=== PATIENT | female | born 1965 | race Caucasian/White ===

== ENCOUNTER → 2018-07-31 | Outpatient (CLI) | payer OTHER | END | disposition home or self-care (01) | LOC: CFH 10:52 | PROVIDERS: ATTEND Obstetrics & Gynecology | DX: Z12.31 Encounter for screening mammogram for malignant neoplasm of breast (principal); Z13.820 Encounter for screening for osteoporosis; M85.88 Other specified disorders of bone density and structure, other site; Z80.3 Family history of malignant neoplasm of breast | CPT/HCPCS: 77080; 77067 ==

== ENCOUNTER 2018-11-01 13:17 | Inpatient (IN) | payer OTHER ==
[~2018-11-01] VITALS: Ht 162.6 cm; Wt 61.5 kg
[2018-11-01] MEDS ORDERED: ONDANSETRON 2MG/ML, 2ML IVPush ONE (14:00)
[2018-11-01] MEDS ORDERED: SODIUM CHLORIDE 0.9% 1,000ML IVBOLUS ONE (14:00)
[2018-11-01] MEDS ORDERED: ONDANSETRON 2MG/ML, 2ML ONE ×2 (14:25→19:19)
[2018-11-01 14:32] LABS: MEAN CORPUSCULAR HEMOGLOBIN 32.6 pg (27.0-34.8); MEAN CORPUSCULAR VOLUME 96.1 fL (80-100); MEAN PLATELET VOLUME 7.4 fL (7.4-10.4); PLATELET COUNT 481 x10^3/uL (130-400); RED BLOOD COUNT 4.93 x10^6/uL (3.82-5.3); RED CELL DISTRIBUTION WIDTH 12.8 % (9.6-15.2)
[2018-11-01 14:44] LABS: ALANINE AMINOTRANSFERASE 18 U/L (12-78); ALBUMIN 4.1 g/dL (3.4-5.0); ANION GAP 12 mmol/L (5-15); CALCIUM 10.1 mg/dL (8.5-10.1); CHLORIDE 97 mmol/L (98-107); CREATININE 0.74 mg/dL (0.55-1.02)
[2018-11-01 14:46] LABS: ALKALINE PHOSPHATASE 93 U/L (45-117)
[2018-11-01 15:03] LABS: BASOPHILS # (AUTO) 0.03 x10^3/uL (0-0.1); BASOPHILS % (AUTO) 0 % (0-1); EOSINOPHILS % (AUTO) 0 % (1-7); LYMPHOCYTES % (AUTO) 6 % (22-44); MD SCAN; MONOCYTES # (AUTO) 0.72 x10^3/uL (0.2-0.8); MONOCYTES % (AUTO) 4 % (2-9); NEUTROPHILS # (AUTO) 16.69 x10^3/uL (1.8-6.8); NEUTROPHILS % (AUTO) 90 % (42-75)
[2018-11-01] MEDS ORDERED: OMNIPAQUE 350 MG/ML, 100ML BOTTLE ONE (15:12)
[2018-11-01] MEDS ORDERED: SODIUM CHLORIDE 0.9% 1,000 ML IV SCH (16:00)
[2018-11-01] MEDS ORDERED: ONDANSETRON 2MG/ML, 2ML IVPush PRN (17:00)
[2018-11-01] MEDS ORDERED: ENALAPRILAT 1.25 MG/ML, 2ML IVPush PRN (17:00)
[2018-11-01] MEDS ORDERED: ONDANSETRON ODT 4 MG PO PRN (17:00)
[2018-11-01] MEDS ORDERED: POTASSIUM CHLORIDE 40 MEQ in SODIUM CHLORIDE 0.9% 500 ML IV ONE (17:00)
[2018-11-01] MEDS ORDERED: hydrALAzine 20 MG/ML, 1ML IVPush PRN (17:00)
[2018-11-01 17:02] VITALS: BP 135/88
[2018-11-01] MEDS: MORPHINE SULFATE 4 MG/ML, 1ML IVPush PRN (17:24)
[2018-11-01] MEDS: SODIUM CHLORIDE 0.9% 1,000 ML IV SCH (17:25)
[2018-11-01] MEDS ORDERED: MIDAZOLAM 1 MG/ML, 2ML ONE (18:47)
[2018-11-01] MEDS ORDERED: FENTANYL PF 250 MCG/5ML ONE (18:47)
[2018-11-01] MEDS ORDERED: GLYCOPYRROLATE 0.2MG/1ML, 5ML ONE (18:49)
[2018-11-01] MEDS ORDERED: METOPROLOL 1 MG/ML, 5ML ONE (18:49)
[2018-11-01] MEDS ORDERED: NEOSTIGMINE 1 MG/ML, 10ML ONE (18:49)
[2018-11-01] MEDS ORDERED: KETOROLAC 30 MG/1 ML ONE (19:19)
[2018-11-01] MEDS ORDERED: DEXAMETHASONE 4 MG/ML, 1ML ONE (19:19)
[2018-11-01] MEDS ORDERED: SUCCINYLCHOLINE 20 MG/ML, 10ML ONE (19:19)
[2018-11-01] MEDS ORDERED: PROPOFOL 10 MG/ML, 20ML ONE (19:19)
[2018-11-01] MEDS ORDERED: ROCURONIUM 10MG/ML,5ML ONE (19:19)
[2018-11-01] MEDS ORDERED: PHENYLEPHRINE 10 MG/ML ONE (19:19)
[2018-11-01] MEDS ORDERED: LIDOCAINE-MPF 2% ,5ML ONE (19:19)
[2018-11-01] MEDS ORDERED: OXYcodone 5 MG/5 ML ORAL.SOL UDC PO PRN (20:00)
[2018-11-01] MEDS ORDERED: MEPERIDINE/PF 25MG/0.5ML IVPush PRN (20:00)
[2018-11-01] MEDS ORDERED: PROMETHAZINE 25 MG/ML, 1ML IV PRN (20:00)
[2018-11-01] MEDS ORDERED: METOPROLOL 1 MG/ML, 5ML IV PRN (20:00)
[2018-11-01] MEDS ORDERED: hydrALAzine 20 MG/ML, 1ML IV PRN ×2 (20:00→22:30)
[2018-11-01] MEDS ORDERED: LORazepam 2 MG/ML, 1ML IVPush PRN (20:00)
[2018-11-01] MEDS ORDERED: HALOPERIDOL 5 MG/ML IV PRN (20:00)
[2018-11-01] MEDS ORDERED: FENTANYL PF 100 MCG/2ML IV PRN (20:00)
[2018-11-01] MEDS ORDERED: ACETAMINOPHEN 325 MG TABLET PO PRN ×2 (20:00→22:30)
[2018-11-01] MEDS ORDERED: HYDROmorphone 2 MG/ML, 1ML ONE (21:04)
[2018-11-01] MEDS: HYDROmorphone 2 MG/ML, 1ML IVPush PRN ×4 (21:08→21:42)
[2018-11-01 22:00] VITALS: BP 105/61
[2018-11-01] MEDS ORDERED: SODIUM CHLORIDE 0.9%, 500ML IV PRN (22:30)
[2018-11-01] MEDS ORDERED: DIPHENHYDRAMINE 50 MG/ML, 1ML IV PRN (22:30)
[2018-11-01] MEDS ORDERED: ONDANSETRON 2MG/ML, 2ML IV PRN (22:30)
[2018-11-01] MEDS ORDERED: DIPHENHYDRAMINE 25 MG CAPSULE PO PRN (22:30)
[2018-11-01] MEDS ORDERED: ACETAMINOPHEN 650 MG SUPP PR PRN (22:30)
[2018-11-01] MEDS ORDERED: HYDROcodone/APAP 5/325 TABLET PO PRN (22:30)
[2018-11-01] MEDS ORDERED: CEFOTETAN PMX 1GM/50ML 50 ML IVPB SCH (22:30)
[2018-11-01] MEDS: ENOXAPARIN 40 MG/0.4 ML SQ SCH (23:24)
[2018-11-02 00:20] VITALS: BP 107/68
[2018-11-02] MEDS ORDERED: ATOR10TA9 PO (00:47)
[2018-11-02] MEDS: SODIUM CHLORIDE 0.9% 1,000 ML IV SCH (02:00)
[2018-11-02] MEDS: KETOROLAC 30 MG/1 ML IV PRN ×2 (02:35→09:36)
[2018-11-02] MEDS: LACTATED RINGERS 1,000 ML IV SCH ×3 (04:14→20:45)
[2018-11-02 04:56] LABS: BASOPHILS % (AUTO) 0 % (0-1); EOSINOPHILS # (AUTO) 0.01 x10^3/uL (0-0.4); EOSINOPHILS % (AUTO) 0 % (1-7); LYMPHOCYTES # (AUTO) 0.53 x10^3/uL (1-3.4); LYMPHOCYTES % (AUTO) 5 % (22-44); MD NO; MEAN CORPUSCULAR HEMOGLOBIN 33.3 pg (27.0-34.8); MEAN CORPUSCULAR HGB CONC 34.2 g/dL (32.4-35.8); MEAN CORPUSCULAR VOLUME 97.5 fL (80-100); MEAN PLATELET VOLUME 7.5 fL (7.4-10.4); MONOCYTES # (AUTO) 0.48 x10^3/uL (0.2-0.8); MONOCYTES % (AUTO) 4 % (2-9); NEUTROPHILS # (AUTO) 9.96 x10^3/uL (1.8-6.8); NEUTROPHILS % (AUTO) 91 % (42-75); PLATELET COUNT 369 x10^3/uL (130-400); RED CELL DISTRIBUTION WIDTH 12.7 % (9.6-15.2)
[2018-11-02 05:01] LABS: ALANINE AMINOTRANSFERASE 65 U/L (12-78); ALBUMIN 2.6 g/dL (3.4-5.0); ANION GAP 8 mmol/L (5-15); CALCIUM 8.2 mg/dL (8.5-10.1); CHLORIDE 110 mmol/L (98-107)
[2018-11-02 05:03] LABS: ALKALINE PHOSPHATASE 59 U/L (45-117); BILIRUBIN,TOTAL 0.8 mg/dL (0.2-1.0); CREATININE 0.65 mg/dL (0.55-1.02)
[2018-11-02 05:18] LABS: MICROSCOPIC INDICATED
[2018-11-02 05:27] LABS: CULTURE INDICATED? NO
[2018-11-02] MEDS: morphine SULFATE 10 MG/ML, 1ML IV PRN ×2 (05:42→14:01)
[2018-11-02] MEDS: CEFOTETAN PMX 1GM/50ML 50 ML IVPB SCH ×2 (06:34→18:30)
[2018-11-02 06:48] VITALS: BP 115/72
[2018-11-02 13:55] VITALS: BP 122/69
[2018-11-02] MEDS: MORPHINE SULFATE 4 MG/ML, 1ML IVPush PRN (18:29)
[2018-11-02 19:19] VITALS: BP 123/79
[2018-11-03] MEDS: KETOROLAC 30 MG/1 ML IV PRN ×4 (00:03→22:08)
[2018-11-03] MEDS: ENOXAPARIN 40 MG/0.4 ML SQ SCH (00:04)
[2018-11-03 00:45] VITALS: BP 119/77
[2018-11-03] MEDS: LACTATED RINGERS 1,000 ML IV SCH ×3 (04:04→22:09)
[2018-11-03 04:46] LABS: MEAN CORPUSCULAR HEMOGLOBIN 33.1 pg (27.0-34.8); MEAN CORPUSCULAR HGB CONC 33.7 g/dL (32.4-35.8); MEAN PLATELET VOLUME 7.8 fL (7.4-10.4); PLATELET COUNT 351 x10^3/uL (130-400); RED BLOOD COUNT 3.29 x10^6/uL (3.82-5.3); RED CELL DISTRIBUTION WIDTH 12.9 % (9.6-15.2)
[2018-11-03 05:18] LABS: BASOPHILS # (AUTO) 0.02 x10^3/uL (0-0.1); BASOPHILS % (AUTO) 0 % (0-1); EOSINOPHILS # (AUTO) 0.01 x10^3/uL (0-0.4); EOSINOPHILS % (AUTO) 0 % (1-7); LYMPHOCYTES # (AUTO) 1.12 x10^3/uL (1-3.4); LYMPHOCYTES % (AUTO) 11 % (22-44); MD SCAN; MONOCYTES # (AUTO) 0.43 x10^3/uL (0.2-0.8); MONOCYTES % (AUTO) 4 % (2-9); NEUTROPHILS % (AUTO) 84 % (42-75)
[2018-11-03 06:41] VITALS: BP 116/72
[2018-11-03 12:18] VITALS: BP 123/75
[2018-11-03 19:20] VITALS: BP 123/78
[2018-11-04 00:07] VITALS: BP 119/79
[2018-11-04] MEDS: ENOXAPARIN 40 MG/0.4 ML SQ SCH (00:13)
[2018-11-04 05:38] LABS: BASOPHILS # (AUTO) 0.02 x10^3/uL (0-0.1); BASOPHILS % (AUTO) 0 % (0-1); EOSINOPHILS # (AUTO) 0.01 x10^3/uL (0-0.4); EOSINOPHILS % (AUTO) 0 % (1-7); LYMPHOCYTES % (AUTO) 5 % (22-44); MD NO; MEAN CORPUSCULAR HEMOGLOBIN 33.6 pg (27.0-34.8); MEAN CORPUSCULAR HGB CONC 34.7 g/dL (32.4-35.8); MEAN PLATELET VOLUME 7.6 fL (7.4-10.4); MONOCYTES # (AUTO) 0.33 x10^3/uL (0.2-0.8); MONOCYTES % (AUTO) 3 % (2-9); NEUTROPHILS % (AUTO) 92 % (42-75); PLATELET COUNT 370 x10^3/uL (130-400); RED CELL DISTRIBUTION WIDTH 13.2 % (9.6-15.2)
[2018-11-04] MEDS: KETOROLAC 30 MG/1 ML IV PRN ×3 (06:57→20:08)
[2018-11-04] MEDS: LACTATED RINGERS 1,000 ML IV SCH ×2 (06:58→20:08)
[2018-11-04 07:05] VITALS: BP 130/75
[2018-11-04 07:14] LABS: ANION GAP 13 mmol/L (5-15); CALCIUM 8.1 mg/dL (8.5-10.1); CHLORIDE 109 mmol/L (98-107); CREATININE 0.25 mg/dL (0.55-1.02)
[2018-11-04 12:30] VITALS: BP 129/81
[2018-11-04] MEDS ORDERED: POTASSIUM CHLORIDE 80 MEQ in SODIUM CHLORIDE 0.9% 1,000 ML IV ONE (15:30)
[2018-11-04 19:27] VITALS: BP 143/79
[2018-11-05] MEDS: ENOXAPARIN 40 MG/0.4 ML SQ SCH (00:04)
[2018-11-05 02:04] VITALS: BP 125/78
[2018-11-05] MEDS: LACTATED RINGERS 1,000 ML IV SCH ×3 (03:10→22:40)
[2018-11-05 04:56] LABS: BASOPHILS % (AUTO) 0 % (0-1); EOSINOPHILS # (AUTO) 0.36 x10^3/uL (0-0.4); EOSINOPHILS % (AUTO) 3 % (1-7); LYMPHOCYTES # (AUTO) 0.72 x10^3/uL (1-3.4); LYMPHOCYTES % (AUTO) 6 % (22-44); MD NO; MEAN CORPUSCULAR HEMOGLOBIN 33.1 pg (27.0-34.8); MEAN CORPUSCULAR HGB CONC 34.3 g/dL (32.4-35.8); MEAN CORPUSCULAR VOLUME 96.5 fL (80-100); MEAN PLATELET VOLUME 7.3 fL (7.4-10.4); MONOCYTES # (AUTO) 0.61 x10^3/uL (0.2-0.8); MONOCYTES % (AUTO) 5 % (2-9); NEUTROPHILS # (AUTO) 11.53 x10^3/uL (1.8-6.8); NEUTROPHILS % (AUTO) 87 % (42-75); PLATELET COUNT 473 x10^3/uL (130-400); RED BLOOD COUNT 3.18 x10^6/uL (3.82-5.3); RED CELL DISTRIBUTION WIDTH 12.9 % (9.6-15.2)
[2018-11-05 05:14] LABS: ANION GAP 11 mmol/L (5-15); CALCIUM 8.2 mg/dL (8.5-10.1); CHLORIDE 114 mmol/L (98-107)
[2018-11-05 05:17] LABS: CREATININE 0.23 mg/dL (0.55-1.02)
[2018-11-05 07:14] VITALS: BP 138/83
[2018-11-05 12:28] VITALS: BP 138/83
[2018-11-05] MEDS: POTASSIUM CHLORIDE 40 MEQ in SODIUM CHLORIDE 0.9% 500 ML IV SCH ×2 (15:06→22:10)
[2018-11-05 19:44] VITALS: BP 129/83
[2018-11-06] MEDS: ENOXAPARIN 40 MG/0.4 ML SQ SCH (00:38)
[2018-11-06 00:52] VITALS: BP 132/85
[2018-11-06 04:29] LABS: BASOPHILS # (AUTO) 0.01 x10^3/uL (0-0.1); BASOPHILS % (AUTO) 0 % (0-1); EOSINOPHILS % (AUTO) 1 % (1-7); LYMPHOCYTES # (AUTO) 0.83 x10^3/uL (1-3.4); LYMPHOCYTES % (AUTO) 6 % (22-44); MD NO; MEAN CORPUSCULAR HEMOGLOBIN 32.6 pg (27.0-34.8); MEAN CORPUSCULAR HGB CONC 33.8 g/dL (32.4-35.8); MEAN CORPUSCULAR VOLUME 96.2 fL (80-100); MEAN PLATELET VOLUME 6.8 fL (7.4-10.4); MONOCYTES # (AUTO) 0.73 x10^3/uL (0.2-0.8); MONOCYTES % (AUTO) 6 % (2-9); NEUTROPHILS % (AUTO) 87 % (42-75); PLATELET COUNT 571 x10^3/uL (130-400); RED BLOOD COUNT 3.41 x10^6/uL (3.82-5.3); RED CELL DISTRIBUTION WIDTH 12.4 % (9.6-15.2)
[2018-11-06 04:49] LABS: ANION GAP 11 mmol/L (5-15); CALCIUM 8.5 mg/dL (8.5-10.1); CHLORIDE 110 mmol/L (98-107); CREATININE 0.21 mg/dL (0.55-1.02)
[2018-11-06] MEDS: LACTATED RINGERS 1,000 ML IV SCH ×2 (05:05→17:24)
[2018-11-06 07:35] VITALS: BP 135/89
[2018-11-06] MEDS ORDERED: POTASSIUM CHLORIDE 20 MEQ PACKET PO ONE (13:00)
[2018-11-06 13:05] VITALS: BP 121/83
[2018-11-06 19:48] VITALS: BP 128/87
[2018-11-07 04:30] VITALS: BP 120/78
[2018-11-07 06:05] LABS: BASOPHILS # (AUTO) 0.06 x10^3/uL (0-0.1); BASOPHILS % (AUTO) 0 % (0-1); EOSINOPHILS # (AUTO) 0.22 x10^3/uL (0-0.4); EOSINOPHILS % (AUTO) 2 % (1-7); LYMPHOCYTES % (AUTO) 8 % (22-44); MD NO; MEAN CORPUSCULAR HEMOGLOBIN 32.9 pg (27.0-34.8); MEAN CORPUSCULAR VOLUME 96.6 fL (80-100); MEAN PLATELET VOLUME 7.2 fL (7.4-10.4); MONOCYTES # (AUTO) 0.85 x10^3/uL (0.2-0.8); MONOCYTES % (AUTO) 6 % (2-9); NEUTROPHILS # (AUTO) 12.28 x10^3/uL (1.8-6.8); NEUTROPHILS % (AUTO) 85 % (42-75); PLATELET COUNT 670 x10^3/uL (130-400); RED BLOOD COUNT 3.62 x10^6/uL (3.82-5.3)
[2018-11-07] MEDS: ENOXAPARIN 40 MG/0.4 ML SQ SCH (06:14)
[2018-11-07 09:22] VITALS: BP 115/78
[2018-11-07 10:39] LABS: CHLORIDE 102 mmol/L (98-107)
[2018-11-07 10:55] LABS: ANION GAP 14 mmol/L (5-15); CALCIUM 8.6 mg/dL (8.5-10.1); CREATININE 0.27 mg/dL (0.55-1.02)
[2018-11-07 13:20] VITALS: BP 107/76
[2018-11-07] MEDS: POTASSIUM CHLORIDE 40 MEQ in SODIUM CHLORIDE 0.9% 500 ML IV SCH (18:02)
[2018-11-07 19:00] VITALS: BP 101/68
[2018-11-08] MEDS: POTASSIUM CHLORIDE 40 MEQ in SODIUM CHLORIDE 0.9% 500 ML IV SCH ×2 (00:55→07:01)
[2018-11-08 01:59] VITALS: BP 105/71
[2018-11-08 04:31] LABS: BASOPHILS # (AUTO) 0.02 x10^3/uL (0-0.1); BASOPHILS % (AUTO) 0 % (0-1); EOSINOPHILS # (AUTO) 0.07 x10^3/uL (0-0.4); EOSINOPHILS % (AUTO) 1 % (1-7); LYMPHOCYTES # (AUTO) 1.13 x10^3/uL (1-3.4); LYMPHOCYTES % (AUTO) 9 % (22-44); MD NO; MEAN CORPUSCULAR VOLUME 96.9 fL (80-100); MEAN PLATELET VOLUME 6.7 fL (7.4-10.4); MONOCYTES # (AUTO) 0.82 x10^3/uL (0.2-0.8); MONOCYTES % (AUTO) 7 % (2-9); NEUTROPHILS % (AUTO) 84 % (42-75); PLATELET COUNT 787 x10^3/uL (130-400); RED BLOOD COUNT 3.42 x10^6/uL (3.82-5.3); RED CELL DISTRIBUTION WIDTH 12.8 % (9.6-15.2)
[2018-11-08 04:43] LABS: ANION GAP 10 mmol/L (5-15); CALCIUM 8.3 mg/dL (8.5-10.1); CHLORIDE 106 mmol/L (98-107)
[2018-11-08 04:45] LABS: CREATININE 0.32 mg/dL (0.55-1.02)
[2018-11-08] MEDS: ENOXAPARIN 40 MG/0.4 ML SQ SCH (05:50)
[2018-11-08 07:15] VITALS: BP 98/62
[2018-11-08] MEDS ORDERED: ONDA4TAB13 PO (13:33)
[2018-11-08] MEDS ORDERED: TRAM50TA2 PO (13:33)
[2018-11-08 13:57] VITALS: BP 104/73
[2018-11-08 15:23] LABS: CALCIUM 8.4 mg/dL (8.5-10.1); CHLORIDE 107 mmol/L (98-107)
[2018-11-08 15:34] LABS: ALANINE AMINOTRANSFERASE 42 U/L (12-78); ALBUMIN 2.1 g/dL (3.4-5.0); ALKALINE PHOSPHATASE 68 U/L (45-117); ANION GAP 8 mmol/L (5-15); BILIRUBIN,TOTAL 0.2 mg/dL (0.2-1.0); CREATININE 0.35 mg/dL (0.55-1.02); TOTAL PROTEIN 6.2 g/dL (6.4-8.2)
[2018-11-08] MEDS ORDERED: HYDR-3240 PO (15:43)
== END 2018-11-08 16:04 | disposition home or self-care (01) | DRG 329 ==
LOC: ED 16:12 → EDIP 16:17 → 3NW 16:58 → DCLOUNGE 11-08 15:54
PROVIDERS: ADMIT Hospitalist; ATTEND Hospitalist
PROC: 0FB00ZX Excision of Liver, Open Approach, Diagnostic (ICD-10-PCS; 2018-11-01)
PROC: 0DB80ZX Excision of Small Intestine, Open Approach, Diagnostic (ICD-10-PCS; 2018-11-01)
PROC: 0DTF0ZZ Resection of Right Large Intestine, Open Approach (ICD-10-PCS; principal; 2018-11-01 18:30)
DX: C18.9 Malignant neoplasm of colon, unspecified (principal); E43 Unspecified severe protein-calorie malnutrition; K56.609 Unspecified intestinal obstruction, unspecified as to partial versus complete obstruction; C78.7 Secondary malignant neoplasm of liver and intrahepatic bile duct; E87.1 Hypo-osmolality and hyponatremia; E86.9 Volume depletion, unspecified; R59.0 Localized enlarged lymph nodes; E87.6 Hypokalemia; E78.5 Hyperlipidemia, unspecified; Z80.0 Family history of malignant neoplasm of digestive organs; Z80.3 Family history of malignant neoplasm of breast; Z82.5 Family history of asthma and other chronic lower respiratory diseases; Z85.038 Personal history of other malignant neoplasm of large intestine
CPT/HCPCS: 36415; 74022; 99285; J3490; 74177; 80048; 80053; 81001; 82378; 83605; 83690; 83735; 84100; 85025; 88307; 88309; 88313; 96361; 96374; G0378; J1100; J1170; J1650; J1885; J2250; J2405; J2704; J2710; J3010; J3480; Q9967; C1760; C1765; J0330; J1200; J2270; J2370; J7030; J7040; J7120

== ENCOUNTER 2018-11-09 21:47 | Inpatient (IN) | payer OTHER ==
[~2018-11-09] VITALS: Ht 162.6 cm; Wt 59.8 kg
[~2018-11-09 21:47] MED LIST: ATOR10TA9 PO; HYDR-3240 PO; ONDA4TAB13 PO; TRAM50TA2 PO
--- NOTE | 2018-11-09 22:28 | NUR ---
pt to ed after oozing from abd incision for color resection 11/01/2018. surgeon notified and referred to ed. no pain. denies n/v/d. no redness at incision. connected to puse ox and bp cuff. vss. awaiting md assessment.
--- NOTE | 2018-11-09 22:50 | NUR ---
REPORT RECEIVED, CARE ASSUMED. PROVIDER AT BEDSIDE.
--- NOTE | 2018-11-09 22:54 | NUR ---
PA AT BEDSIDE FOR ASSESSMENT
[2018-11-09] MEDS ORDERED: SODIUM CHLORIDE 0.9% 1,000ML IVBOLUS ONE (23:30)
--- NOTE | 2018-11-09 23:37 | NUR ---
IV PLACED, BOLUS STARTED. PT UPDATED ON PLAN OF CARE. STATES PAIN IS MANAGEABLE AT THIS TIME. DENIES ADDITIONAL NEEDS.
[2018-11-09 23:49] LABS: BASOPHILS # (AUTO) 0.36 x10^3/uL (0-0.1); BASOPHILS % (AUTO) 2 % (0-1); EOSINOPHILS # (AUTO) 0.01 x10^3/uL (0-0.4); EOSINOPHILS % (AUTO) 0 % (1-7); LYMPHOCYTES # (AUTO) 1.08 x10^3/uL (1-3.4); LYMPHOCYTES % (AUTO) 6 % (22-44); MD NO; MEAN CORPUSCULAR HGB CONC 34.3 g/dL (32.4-35.8); MEAN CORPUSCULAR VOLUME 96.1 fL (80-100); MEAN PLATELET VOLUME 6.4 fL (7.4-10.4); MONOCYTES % (AUTO) 5 % (2-9); NEUTROPHILS # (AUTO) 14.88 x10^3/uL (1.8-6.8); NEUTROPHILS % (AUTO) 87 % (42-75); PLATELET COUNT 802 x10^3/uL (130-400); RED BLOOD COUNT 3.56 x10^6/uL (3.82-5.3); RED CELL DISTRIBUTION WIDTH 13.1 % (9.6-15.2)
[2018-11-09 23:58] LABS: CALCIUM 8.5 mg/dL (8.5-10.1); CHLORIDE 99 mmol/L (98-107)
[2018-11-09] MEDS ORDERED: OMNIPAQUE 350 MG/ML, 100ML BOTTLE ONE (23:59)
[2018-11-10 00:04] LABS: ALANINE AMINOTRANSFERASE 39 U/L (12-78); ALBUMIN 2.3 g/dL (3.4-5.0); ALKALINE PHOSPHATASE 77 U/L (45-117); ANION GAP 7 mmol/L (5-15); BILIRUBIN,TOTAL 0.4 mg/dL (0.2-1.0); CREATININE 0.34 mg/dL (0.55-1.02); TOTAL PROTEIN 6.6 g/dL (6.4-8.2)
--- NOTE | 2018-11-10 00:05 | NUR ---
PT UP TO RESTROOM WITH FAMILY ASSIST. AMBULATES WELL WITH MINIMAL ASSISTANCE. PT TO CT POST RESTROOM.
[2018-11-10] MEDS ORDERED: POTASSIUM CHLORIDE 40 MEQ in SODIUM CHLORIDE 0.9% 500 ML IV ONE (00:30)
--- NOTE | 2018-11-10 01:00 | NUR ---
PT RETURNS TO ROOM. POTASSIUM INFUSION STARTED. PT AWARE AWAITING CT RESULTS. NO S/S DISTRESS, DENIES NEEDS AT THIS TIME.
[2018-11-10] MEDS ORDERED: PIPERACILLIN/TAZO/PMX 3.375GM 50 ML ONE (01:27)
[2018-11-10] MEDS ORDERED: VANCOMYCIN PER PHARMACY MC PRN (01:30)
[2018-11-10] MEDS ORDERED: VANCOMYCIN PMX 1GM/200ML 200 ML IV ONE (01:30)
[2018-11-10] MEDS ORDERED: PIPERACILLIN/TAZO/PMX 3.375GM 50 ML IV ONE (01:30)
--- NOTE | 2018-11-10 01:49 | NUR ---
ABX STARTED AND PT UPDATED ON PLAN OF CARE INCLUDING ADMISSION. PT DENIES NEED FOR PAIN CONTROL.
--- NOTE | 2018-11-10 03:00 | NUR ---
PT CONTINUES RESTING QUIETLY. BEDSIDE REPORT TO SIMON COLE.
[2018-11-10 03:59] VITALS: BP 101/68
[2018-11-10] MEDS ORDERED: SODIUM CHLORIDE 0.9% 1,000 ML IV SCH (04:44)
[2018-11-10] MEDS ORDERED: KETOROLAC 30 MG/1 ML IV PRN (05:00)
[2018-11-10] MEDS ORDERED: ACETAMINOPHEN 650 MG SUPP PR PRN (05:00)
[2018-11-10] MEDS ORDERED: ACETAMINOPHEN 500 MG TABLET PO PRN ×2 (05:00→11:00)
[2018-11-10] MEDS: PIPERACILLIN/TAZO/PMX 4.5GM 100 ML IV SCH ×4 (05:17→22:49)
[2018-11-10] MEDS: HEPARIN 5,000 UNITS/ML, 1ML SQ SCH ×2 (08:00→20:53)
[2018-11-10] MEDS ORDERED: FENTANYL PF 250 MCG/5ML ONE (08:02)
[2018-11-10] MEDS ORDERED: NEOSTIGMINE 1 MG/ML, 10ML ONE (08:05)
[2018-11-10] MEDS ORDERED: PHENYLEPHRINE 10 MG/ML ONE (08:05)
[2018-11-10] MEDS ORDERED: GLYCOPYRROLATE 0.2MG/1ML, 5ML ONE (08:05)
[2018-11-10] MEDS ORDERED: DEXAMETHASONE 4 MG/ML, 1ML ONE (08:05)
[2018-11-10] MEDS ORDERED: ROCURONIUM 10MG/ML,5ML ONE (08:05)
[2018-11-10] MEDS ORDERED: PROPOFOL 10 MG/ML, 20ML ONE (08:05)
[2018-11-10] MEDS ORDERED: ONDANSETRON 2MG/ML, 2ML ONE ×2 (08:05→09:10)
[2018-11-10] MEDS ORDERED: SUCCINYLCHOLINE 20 MG/ML, 10ML ONE (08:05)
[2018-11-10] MEDS ORDERED: PROMETHAZINE 25 MG/ML, 1ML IV PRN (08:30)
[2018-11-10] MEDS ORDERED: PROCHLORPERAZINE 5 MG/ML, 2ML IV PRN (08:30)
[2018-11-10] MEDS ORDERED: MEPERIDINE/PF 25MG/0.5ML IVPush PRN (08:30)
[2018-11-10] MEDS ORDERED: METOPROLOL 1 MG/ML, 5ML IV PRN (08:30)
[2018-11-10] MEDS ORDERED: DIPHENHYDRAMINE 50 MG/ML, 1ML IVPush PRN (08:30)
[2018-11-10] MEDS ORDERED: LABETALOL 5MG/ML, 20ML IV PRN (08:30)
[2018-11-10] MEDS ORDERED: OXYcodone 5 MG/5 ML ORAL.SOL UDC PO PRN (08:30)
[2018-11-10] MEDS ORDERED: hydrALAzine 20 MG/ML, 1ML IV PRN (08:30)
[2018-11-10] MEDS ORDERED: FENTANYL PF 100 MCG/2ML ONE (09:10)
[2018-11-10] MEDS ORDERED: PROMETHAZINE 25 MG/ML, 1ML ONE (09:10)
[2018-11-10] MEDS ORDERED: HYDROmorphone 2 MG/ML, 1ML ONE (09:11)
[2018-11-10] MEDS: FENTANYL PF 100 MCG/2ML IV PRN ×2 (09:13→09:44)
[2018-11-10] MEDS: HYDROmorphone 2 MG/ML, 1ML IVPush PRN ×3 (09:17→11:58)
[2018-11-10 10:10] VITALS: BP 102/69
[2018-11-10] MEDS: IBUPROFEN 600 MG TABLET PO SCH ×2 (11:42→17:03)
[2018-11-10] MEDS: ACETAMINOPHEN 500 MG TABLET PO SCH ×3 (11:42→20:53)
[2018-11-10] MEDS ORDERED: VANCOMYCIN PER PHARMACY MC ONE ×2 (12:00)
[2018-11-10] MEDS: ONDANSETRON 2MG/ML, 2ML IVPush PRN (13:59)
[2018-11-10 14:00] VITALS: BP 115/79
[2018-11-10] MEDS ORDERED: VANCOMYCIN PMX 1GM/200ML 200 ML IVPB ONE (14:00)
[2018-11-10 20:38] VITALS: BP 106/73
[2018-11-11 01:35] VITALS: BP 96/59
[2018-11-11 04:24] LABS: MEAN CORPUSCULAR HEMOGLOBIN 32.4 pg (27.0-34.8); MEAN CORPUSCULAR HGB CONC 33.1 g/dL (32.4-35.8); MEAN CORPUSCULAR VOLUME 97.8 fL (80-100); MEAN PLATELET VOLUME 6.5 fL (7.4-10.4); PLATELET COUNT 682 x10^3/uL (130-400); RED BLOOD COUNT 2.81 x10^6/uL (3.82-5.3); RED CELL DISTRIBUTION WIDTH 13.5 % (9.6-15.2)
[2018-11-11 04:29] LABS: ALBUMIN 1.6 g/dL (3.4-5.0); ANION GAP 9 mmol/L (5-15); CHLORIDE 106 mmol/L (98-107)
[2018-11-11 04:33] LABS: ALANINE AMINOTRANSFERASE 40 U/L (12-78); ALKALINE PHOSPHATASE 87 U/L (45-117); BILIRUBIN,TOTAL 0.5 mg/dL (0.2-1.0); CREATININE 0.88 mg/dL (0.55-1.02); TOTAL PROTEIN 4.9 g/dL (6.4-8.2)
[2018-11-11] MEDS ORDERED: SODIUM CHLORIDE 0.9% 1,000 ML IV SCH (04:44)
[2018-11-11] MEDS: PIPERACILLIN/TAZO/PMX 4.5GM 100 ML IV SCH ×4 (05:26→23:23)
[2018-11-11] MEDS: ACETAMINOPHEN 500 MG TABLET PO SCH ×4 (05:30→23:30)
[2018-11-11 05:39] LABS: BASOPHILS # (AUTO) 0.01 x10^3/uL (0-0.1); BASOPHILS % (AUTO) 0 % (0-1); EOSINOPHILS # (AUTO) 0.03 x10^3/uL (0-0.4); EOSINOPHILS % (AUTO) 0 % (1-7); LYMPHOCYTES # (AUTO) 1.07 x10^3/uL (1-3.4); LYMPHOCYTES % (AUTO) 7 % (22-44); MD SCAN; MONOCYTES # (AUTO) 0.67 x10^3/uL (0.2-0.8); MONOCYTES % (AUTO) 4 % (2-9); NEUTROPHILS # (AUTO) 14.15 x10^3/uL (1.8-6.8); NEUTROPHILS % (AUTO) 89 % (42-75)
[2018-11-11] MEDS ORDERED: MAGNESIUM SULFATE PMX 4GM/100M 100 ML IV ONE (07:30)
[2018-11-11 07:35] VITALS: BP 99/64
[2018-11-11] MEDS ORDERED: POTASSIUM CHLORIDE 20 MEQ TAB.ER.PRT PO SCH (08:00)
[2018-11-11] MEDS: IBUPROFEN 600 MG TABLET PO SCH ×3 (08:49→16:10)
[2018-11-11] MEDS: HEPARIN 5,000 UNITS/ML, 1ML SQ SCH ×2 (08:49→21:43)
[2018-11-11] MEDS: POTASSIUM CHLORIDE 40 MEQ in SODIUM CHLORIDE 0.45% 1,000 ML IV SCH ×2 (11:51→23:57)
[2018-11-11 12:58] VITALS: BP 93/62
[2018-11-11 18:54] VITALS: BP 101/70
[2018-11-12 01:32] VITALS: BP 111/74
[2018-11-12] MEDS: PIPERACILLIN/TAZO/PMX 4.5GM 100 ML IV SCH ×4 (04:48→23:00)
[2018-11-12 05:00] LABS: BASOPHILS # (AUTO) 0.04 x10^3/uL (0-0.1); BASOPHILS % (AUTO) 0 % (0-1); EOSINOPHILS # (AUTO) 0.04 x10^3/uL (0-0.4); EOSINOPHILS % (AUTO) 0 % (1-7); HCT (SEDRATE) 27.3 % (34.6-47.8); LYMPHOCYTES # (AUTO) 0.71 x10^3/uL (1-3.4); LYMPHOCYTES % (AUTO) 5 % (22-44); MD NO; MEAN CORPUSCULAR HEMOGLOBIN 33.5 pg (27.0-34.8); MEAN CORPUSCULAR HGB CONC 34.7 g/dL (32.4-35.8); MEAN CORPUSCULAR VOLUME 96.6 fL (80-100); MEAN PLATELET VOLUME 6.5 fL (7.4-10.4); MONOCYTES % (AUTO) 4 % (2-9); NEUTROPHILS % (AUTO) 90 % (42-75); PLATELET COUNT 725 x10^3/uL (130-400); RED BLOOD COUNT 2.78 x10^6/uL (3.82-5.3); RED CELL DISTRIBUTION WIDTH 13.2 % (9.6-15.2)
[2018-11-12 05:13] LABS: ANION GAP 9 mmol/L (5-15); CALCIUM 7.8 mg/dL (8.5-10.1); CHLORIDE 109 mmol/L (98-107); IRON LEVEL 20 mcg/dL (50-170)
[2018-11-12] MEDS: ACETAMINOPHEN 500 MG TABLET PO SCH ×4 (05:14→23:00)
[2018-11-12 05:20] LABS: % IRON SATURATION 13 % (20-55); CREATININE 0.82 mg/dL (0.55-1.02); TOTAL IRON BINDING CAPACITY 150 mcg/dL (250-450)
[2018-11-12 07:54] VITALS: BP 111/75
[2018-11-12] MEDS: IBUPROFEN 600 MG TABLET PO SCH ×4 (08:50→19:21)
[2018-11-12] MEDS: HEPARIN 5,000 UNITS/ML, 1ML SQ SCH ×2 (08:56→20:36)
[2018-11-12] MEDS: NS + 40MEQ KCL 1,000 ML IV SCH (08:56)
[2018-11-12 13:27] VITALS: BP 125/81
[2018-11-12] MEDS: ONDANSETRON 2MG/ML, 2ML IVPush PRN (16:59)
[2018-11-12 18:40] VITALS: BP 114/76
[2018-11-13] MEDS: NS + 40MEQ KCL 1,000 ML IV SCH ×2 (00:45→14:31)
[2018-11-13 04:24] VITALS: BP 105/68
[2018-11-13] MEDS: PIPERACILLIN/TAZO/PMX 4.5GM 100 ML IV SCH (05:09)
[2018-11-13] MEDS: ACETAMINOPHEN 500 MG TABLET PO SCH ×4 (05:09→23:40)
[2018-11-13 05:12] LABS: ANION GAP 9 mmol/L (5-15); CHLORIDE 106 mmol/L (98-107)
[2018-11-13 05:15] LABS: CALCIUM 8.3 mg/dL (8.5-10.1); CREATININE 0.64 mg/dL (0.55-1.02)
[2018-11-13 07:46] VITALS: BP 111/73
[2018-11-13] MEDS: IBUPROFEN 600 MG TABLET PO SCH ×3 (08:00→17:00)
[2018-11-13] MEDS: FERROUS SULFATE 325 MG TABLET PO SCH (08:16)
[2018-11-13] MEDS: HEPARIN 5,000 UNITS/ML, 1ML SQ SCH ×2 (08:16→20:22)
[2018-11-13] MEDS ORDERED: POTASSIUM CHLORIDE 40 MEQ in SODIUM CHLORIDE 0.9% 500 ML IV ONE (09:00)
[2018-11-13] MEDS: HYDROmorphone 2 MG/ML, 1ML IVPush PRN (09:40)
[2018-11-13] MEDS ORDERED: CEFAZOLIN PMX 1GM/50ML 50 ML IV SCH (11:00)
[2018-11-13] MEDS: CEFTRIAXONE PMX 2GM/50ML 50 ML IV SCH (11:40)
[2018-11-13 14:30] VITALS: BP 114/75
[2018-11-13 19:16] VITALS: BP 116/74
[2018-11-13] MEDS ORDERED: PSYLLIUM PACKET PO PRN (21:00)
[2018-11-14 01:36] VITALS: BP 124/78
[2018-11-14 05:21] LABS: ANION GAP 8 mmol/L (5-15); CALCIUM 7.9 mg/dL (8.5-10.1); CHLORIDE 108 mmol/L (98-107); CREATININE 0.42 mg/dL (0.55-1.02)
[2018-11-14] MEDS: ACETAMINOPHEN 500 MG TABLET PO SCH ×4 (05:37→23:18)
[2018-11-14] MEDS: NS + 40MEQ KCL 1,000 ML IV SCH (06:19)
[2018-11-14 08:00] VITALS: BP 114/74
[2018-11-14] MEDS: IBUPROFEN 600 MG TABLET PO SCH ×3 (08:00→17:00)
[2018-11-14] MEDS: HEPARIN 5,000 UNITS/ML, 1ML SQ SCH ×2 (09:10→21:07)
[2018-11-14] MEDS: POTASSIUM CHLORIDE 20 MEQ TAB.ER.PRT PO SCH ×2 (09:11→17:43)
[2018-11-14] MEDS: CEFTRIAXONE PMX 2GM/50ML 50 ML IV SCH (11:53)
[2018-11-14 12:26] VITALS: BP 114/76
[2018-11-14 19:51] VITALS: BP 127/82
[2018-11-15] MEDS: NS + 40MEQ KCL 1,000 ML IV SCH (01:46)
[2018-11-15 01:49] VITALS: BP 121/71
[2018-11-15 04:32] LABS: ALBUMIN 1.9 g/dL (3.4-5.0); ANION GAP 7 mmol/L (5-15); CALCIUM 8.2 mg/dL (8.5-10.1); CHLORIDE 107 mmol/L (98-107)
[2018-11-15 04:36] LABS: ALANINE AMINOTRANSFERASE 69 U/L (12-78); ALKALINE PHOSPHATASE 257 U/L (45-117); BASOPHILS # (AUTO) 0.03 x10^3/uL (0-0.1); BASOPHILS % (AUTO) 0 % (0-1); BILIRUBIN,TOTAL 0.5 mg/dL (0.2-1.0); CREATININE 0.45 mg/dL (0.55-1.02); EOSINOPHILS # (AUTO) 0.17 x10^3/uL (0-0.4); EOSINOPHILS % (AUTO) 2 % (1-7); LYMPHOCYTES # (AUTO) 1.39 x10^3/uL (1-3.4); LYMPHOCYTES % (AUTO) 18 % (22-44); MD NO; MEAN CORPUSCULAR HEMOGLOBIN 32.2 pg (27.0-34.8); MEAN CORPUSCULAR HGB CONC 33.5 g/dL (32.4-35.8); MEAN CORPUSCULAR VOLUME 96.2 fL (80-100); MEAN PLATELET VOLUME 6.5 fL (7.4-10.4); MONOCYTES # (AUTO) 0.64 x10^3/uL (0.2-0.8); MONOCYTES % (AUTO) 8 % (2-9); NEUTROPHILS # (AUTO) 5.48 x10^3/uL (1.8-6.8); NEUTROPHILS % (AUTO) 71 % (42-75); PLATELET COUNT 831 x10^3/uL (130-400); RED BLOOD COUNT 2.78 x10^6/uL (3.82-5.3); RED CELL DISTRIBUTION WIDTH 13.3 % (9.6-15.2); TOTAL PROTEIN 5.8 g/dL (6.4-8.2)
[2018-11-15] MEDS: ACETAMINOPHEN 500 MG TABLET PO SCH ×2 (05:30→11:30)
[2018-11-15] MEDS: POTASSIUM CHLORIDE 20 MEQ TAB.ER.PRT PO SCH (07:48)
[2018-11-15] MEDS: HEPARIN 5,000 UNITS/ML, 1ML SQ SCH (07:49)
[2018-11-15] MEDS: IBUPROFEN 600 MG TABLET PO SCH ×2 (07:51→11:38)
[2018-11-15] MEDS: FERROUS SULFATE 325 MG TABLET PO SCH (07:51)
[2018-11-15 08:00] VITALS: BP 116/78
[2018-11-15] MEDS: HYDROmorphone 2 MG/ML, 1ML IVPush PRN (09:21)
[2018-11-15] MEDS ORDERED: ACET500T71 PO (11:22)
[2018-11-15] MEDS ORDERED: POTA20TA6 PO (11:22)
[2018-11-15] MEDS ORDERED: FERR-51 PO (11:22)
[2018-11-15] MEDS: CEFTRIAXONE PMX 2GM/50ML 50 ML IV SCH (11:38)
== END 2018-11-15 14:30 | disposition home or self-care (01) | DRG 856 ==
LOC: ED 22:08 → EDIP 11-10 03:17 → 3NW 11-10 03:43
PROVIDERS: ADMIT Hospitalist; ATTEND Hospitalist
PROC: 02HV33Z Insertion of Infusion Device into Superior Vena Cava, Percutaneous Approach (ICD-10-PCS; 2018-11-10)
PROC: B5181ZA Fluoroscopy of Superior Vena Cava using Low Osmolar Contrast, Guidance (ICD-10-PCS; 2018-11-10)
PROC: B548ZZA Ultrasonography of Superior Vena Cava, Guidance (ICD-10-PCS; 2018-11-10)
PROC: 0J980ZZ Drainage of Abdomen Subcutaneous Tissue and Fascia, Open Approach (ICD-10-PCS; principal; 2018-11-10 08:00)
DX: T81.42XA Infection following a procedure, deep incisional surgical site, initial encounter (principal); K75.0 Abscess of liver; E43 Unspecified severe protein-calorie malnutrition; T81.32XA Disruption of internal operation (surgical) wound, not elsewhere classified, initial encounter; L02.211 Cutaneous abscess of abdominal wall; C18.9 Malignant neoplasm of colon, unspecified; C78.7 Secondary malignant neoplasm of liver and intrahepatic bile duct; E87.1 Hypo-osmolality and hyponatremia; K82.8 Other specified diseases of gallbladder; D47.3 Essential (hemorrhagic) thrombocythemia; E87.6 Hypokalemia; E83.42 Hypomagnesemia; G47.00 Insomnia, unspecified; E78.5 Hyperlipidemia, unspecified; D50.9 Iron deficiency anemia, unspecified; Z90.49 Acquired absence of other specified parts of digestive tract; Z85.038 Personal history of other malignant neoplasm of large intestine; Z68.22 Body mass index [BMI] 22.0-22.9, adult; Z80.3 Family history of malignant neoplasm of breast
CPT/HCPCS: 36415; 84145; 99285; J3490; 36573; 74177; 80048; 80053; 82378; 83540; 83550; 83605; 83735; 84100; 85025; 85651; 86140; 87040; 87070; 87077; 87186; 87205; 96361; 96365; 97162; G0378; J0696; J1100; J1170; J1644; J2405; J2543; J2550; J2704; J2710; J3010; J3370; J3480; Q9967; C1751; J0330; J2370; J3475; J7030; J7040

== ENCOUNTER → 2018-11-18 | Outpatient (CLI) | payer OTHER ==
[~2018-11-18] MED LIST changes: +ACET500T71 PO; +FERR-51 PO; +POTA20TA6 PO
== END | disposition home or self-care (01) ==
LOC: WOUND 13:04
PROVIDERS: ATTEND Internal Medicine
DX: T81.31XD Disruption of external operation (surgical) wound, not elsewhere classified, subsequent encounter (principal); C18.7 Malignant neoplasm of sigmoid colon; E78.5 Hyperlipidemia, unspecified; Z90.49 Acquired absence of other specified parts of digestive tract; Z85.038 Personal history of other malignant neoplasm of large intestine; Y83.8 Other surgical procedures as the cause of abnormal reaction of the patient, or of later complication, without mention of misadventure at the time of the procedure
CPT/HCPCS: 97605; 99214

== ENCOUNTER → 2018-11-20 | Outpatient (CLI) | payer OTHER | END | disposition home or self-care (01) | LOC: WOUND 10:16 | PROVIDERS: ATTEND Internal Medicine | DX: T81.31XD Disruption of external operation (surgical) wound, not elsewhere classified, subsequent encounter (principal); C18.7 Malignant neoplasm of sigmoid colon; E78.5 Hyperlipidemia, unspecified; Z90.49 Acquired absence of other specified parts of digestive tract; Z85.038 Personal history of other malignant neoplasm of large intestine; Y83.8 Other surgical procedures as the cause of abnormal reaction of the patient, or of later complication, without mention of misadventure at the time of the procedure | CPT/HCPCS: 97605 ==

== ENCOUNTER → 2018-11-22 | Outpatient (CLI) | payer OTHER | END | disposition home or self-care (01) | LOC: WOUND 13:07 | PROVIDERS: ATTEND Family Medicine | DX: T81.31XD Disruption of external operation (surgical) wound, not elsewhere classified, subsequent encounter (principal); C18.7 Malignant neoplasm of sigmoid colon; E78.5 Hyperlipidemia, unspecified; Y83.8 Other surgical procedures as the cause of abnormal reaction of the patient, or of later complication, without mention of misadventure at the time of the procedure | CPT/HCPCS: 97605 ==

== ENCOUNTER → 2018-11-25 | Outpatient (CLI) | payer OTHER | END | disposition home or self-care (01) | LOC: WOUND 09:11 | PROVIDERS: ATTEND Internal Medicine | DX: T81.31XD Disruption of external operation (surgical) wound, not elsewhere classified, subsequent encounter (principal); C18.7 Malignant neoplasm of sigmoid colon; E78.5 Hyperlipidemia, unspecified; Z90.49 Acquired absence of other specified parts of digestive tract; Z85.038 Personal history of other malignant neoplasm of large intestine; Y83.8 Other surgical procedures as the cause of abnormal reaction of the patient, or of later complication, without mention of misadventure at the time of the procedure | CPT/HCPCS: 97597 ==

== ENCOUNTER → 2018-11-27 | Outpatient (CLI) | payer OTHER | END | disposition home or self-care (01) | LOC: WOUND 14:11 | PROVIDERS: ATTEND Internal Medicine Cardiovascular Disease | DX: T81.31XD Disruption of external operation (surgical) wound, not elsewhere classified, subsequent encounter (principal); C18.7 Malignant neoplasm of sigmoid colon; E78.5 Hyperlipidemia, unspecified; Z90.49 Acquired absence of other specified parts of digestive tract; Z85.038 Personal history of other malignant neoplasm of large intestine; Y83.8 Other surgical procedures as the cause of abnormal reaction of the patient, or of later complication, without mention of misadventure at the time of the procedure | CPT/HCPCS: 99214 ==

== ENCOUNTER → 2018-11-29 | Outpatient (CLI) | payer OTHER | END | disposition home or self-care (01) | LOC: WOUND 13:55 | PROVIDERS: ATTEND Family Medicine | DX: T81.31XD Disruption of external operation (surgical) wound, not elsewhere classified, subsequent encounter (principal); C18.7 Malignant neoplasm of sigmoid colon; E78.5 Hyperlipidemia, unspecified; Z90.49 Acquired absence of other specified parts of digestive tract; Z85.038 Personal history of other malignant neoplasm of large intestine; Y83.8 Other surgical procedures as the cause of abnormal reaction of the patient, or of later complication, without mention of misadventure at the time of the procedure | CPT/HCPCS: 99213 ==

== ENCOUNTER → 2018-12-04 | Outpatient (CLI) | payer OTHER ==
[~2018-12-04] MED LIST changes: +OMNIPAQUE 350 MG/ML, 100ML BOTTLE ONE
== END | disposition home or self-care (01) ==
LOC: CFH 12:39
PROVIDERS: ATTEND Internal Medicine Infectious Disease
DX: C18.2 Malignant neoplasm of ascending colon (principal); C78.7 Secondary malignant neoplasm of liver and intrahepatic bile duct; K82.8 Other specified diseases of gallbladder; Z90.49 Acquired absence of other specified parts of digestive tract
CPT/HCPCS: 71260; 74177; Q9967

== ENCOUNTER 2018-12-06 13:14 | Outpatient (CLI) | payer OTHER ==
[~2018-12-06 13:14] MED LIST changes: -OMNIPAQUE 350 MG/ML, 100ML BOTTLE ONE
== END 2018-12-06 23:59 | disposition home or self-care (01) ==
LOC: WOUND 13:14
PROVIDERS: ATTEND Family Medicine
DX: T81.31XD Disruption of external operation (surgical) wound, not elsewhere classified, subsequent encounter (principal); C18.7 Malignant neoplasm of sigmoid colon; E78.5 Hyperlipidemia, unspecified; Z90.49 Acquired absence of other specified parts of digestive tract; Z85.038 Personal history of other malignant neoplasm of large intestine; Y83.8 Other surgical procedures as the cause of abnormal reaction of the patient, or of later complication, without mention of misadventure at the time of the procedure
CPT/HCPCS: 11042; 97597

== ENCOUNTER 2018-12-10 11:54 | Day surgery (SDC) | payer OTHER ==
[~2018-12-10] VITALS: Ht 162.6 cm; Wt 52.7 kg
[2018-12-10 12:32] VITALS: BP 137/90
[2018-12-10] MEDS ORDERED: SODIUM CHLORIDE 0.9% 1,000 ML IV SCH (12:35)
[2018-12-10] MEDS ORDERED: LIDOCAINE 1%, 20ML ONE (13:19)
== END 2018-12-10 15:32 | disposition home or self-care (01) ==
LOC: OUT 11:54
PROVIDERS: ATTEND Internal Medicine
DX: Z45.2 Encounter for adjustment and management of vascular access device (principal); C18.2 Malignant neoplasm of ascending colon
CPT/HCPCS: 36561; 76937; 77001; 99156; 99157; C1788; J1642; J2250; J3010; J3490; J7030

== ENCOUNTER 2018-12-13 14:36 | Outpatient (CLI) | payer OTHER | END 2018-12-13 23:59 | disposition home or self-care (01) | LOC: WOUND 14:36 | PROVIDERS: ATTEND Internal Medicine Cardiovascular Disease | DX: T81.31XD Disruption of external operation (surgical) wound, not elsewhere classified, subsequent encounter (principal); C18.7 Malignant neoplasm of sigmoid colon; E78.5 Hyperlipidemia, unspecified; Z85.038 Personal history of other malignant neoplasm of large intestine; Y83.8 Other surgical procedures as the cause of abnormal reaction of the patient, or of later complication, without mention of misadventure at the time of the procedure | CPT/HCPCS: 99213 ==

== ENCOUNTER 2018-12-20 14:37 | Outpatient (CLI) | payer OTHER | END 2018-12-20 23:59 | disposition home or self-care (01) | LOC: WOUND 14:37 | PROVIDERS: ATTEND Family Medicine | DX: T81.31XD Disruption of external operation (surgical) wound, not elsewhere classified, subsequent encounter (principal); C18.7 Malignant neoplasm of sigmoid colon; E78.5 Hyperlipidemia, unspecified; Z90.49 Acquired absence of other specified parts of digestive tract; Z85.038 Personal history of other malignant neoplasm of large intestine; Y83.8 Other surgical procedures as the cause of abnormal reaction of the patient, or of later complication, without mention of misadventure at the time of the procedure | CPT/HCPCS: 99214 ==

== ENCOUNTER 2019-04-03 08:46 | Outpatient (CLI) | payer OTHER ==
[2019-04-03] MEDS ORDERED: OMNIPAQUE 350 MG/ML, 100ML BOTTLE ONE (15:31)
== END 2019-04-03 23:59 | disposition home or self-care (01) ==
LOC: CFH 08:46
PROVIDERS: ATTEND Internal Medicine
DX: C78.7 Secondary malignant neoplasm of liver and intrahepatic bile duct (principal); C18.2 Malignant neoplasm of ascending colon
CPT/HCPCS: 71260; 74177; Q9967